=== PATIENT | male | born 1985 | race Caucasian/White ===

== ENCOUNTER 2018-02-07 11:50 | Emergency (ER) | payer OTHER ==
[~2018-02-07] VITALS: Ht 175.3 cm; Wt 67.6 kg
[2018-02-07] MEDS ORDERED: KETO10TA2 PO (15:48)
== END 2018-02-07 15:55 | disposition home or self-care (01) ==
LOC: ER 11:50 → EDBD 12:10 → ER 15:55
DX: R10.32 Left lower quadrant pain (principal); R10.12 Left upper quadrant pain